=== PATIENT | male | born 2000 ===

== ENCOUNTER → 2024-08-15 | Outpatient (REF) | payer OTHER ==
[2024-08-15 19:11] LABS: Trichomonas vaginalis (AMP) NOT DETECTED (NEGATIVE)
[2024-08-15 19:35] LABS: GC DNA AMPLIFICATION NEGATIVE (NEGATIVE)
== END ==
LOC: M LAB REF 17:10
PROVIDERS: ATTEND Physician Assistant
DX: R30.0 Dysuria (principal)